=== PATIENT | female | born 1975 | race Caucasian/White ===

== ENCOUNTER 2018-01-01 18:12 | Emergency (ER) | payer OTHER ==
[2018-01-01 18:24] VITALS: BP 159/99; PULSE 101; TEMP 98.2; BMI 26.4
--- NOTE | 2018-01-01 19:05 | PDOC ---
History of Present Illness - History of Present Illness Initial Comments: 01/01/18 20:03 The patient is a 42 year old female, with no significant past medical history, who presents to the emergency department with, right lower extremity calf pain s /p walking down 5 flights of stairs at work this afternoon. The patient reports the right lower extremity calf pain is worse with movement. The patient reports when she was walking for a long period of time in the city 3 weeks ago she experienced the same right lower extremity calf pain that resolved on its own. The patient reports she returned from a recent trip to [facility] ( approx. 3 hour flight) this past Monday. She denies recent fevers, chills, headache or dizziness. She denies recent nausea, vomit, diarrhea or constipation. She denies recent dysuria, frequency, urgency or hematuria. She denies recent chest pain or shortness of breath. PAST MEDICAL HISTORY: no significant history PAST SURGICAL HISTORY: no significant history FAMILY HISTORY: no pertinent history SOCIAL HISTORY: Pt lives with family and is employed. MEDICATIONS: reviewed ALLERGIES: As per nursing notes General: No fevers or chills, no weakness, no weight loss HEENT: No change in vision. No sore throat,. No ear pain CardioVascular: No chest pain or shortness of breath Respiratory:No cough, or wheezing. Gastrointestinal: no nausea, vomiting, diarrhea or constipation, No rectal bleeding Genitourinary: No dysuria, hematuria, or frequency Musculoskeletal: +Right lower extremity calf pain. Neurologic: No headache, vertigo, dizziness or loss of consciousness Psychiatric: nor depression Skin: No rashes or easy bruising Endocrine: no increased thirst or abnormal weight change Allergic: no skin or latex allergy All other systems reviewed and normal General: Well-nourished well-developed individual, no acute distress Cardiac: S1-S2 normal, regular rate and rhythm, no murmurs rubs or gallops Respiratory: Lungs clear to auscultation bilateral Abdomen: Soft, nondistended, normal bowel sounds, nontender to palpation diffusely Extremities: +Tenderness to palpation posterior calf of right lower extremity. 1 + edema. No erythema or increase in warmth. No tender palpable cords in the thigh. Pulses normal. Distal 2+. Skin: No rashes Neuro: Alert and oriented x3, nonfocal exam, grossly intact, normal gait Psych: Normal mood and affect <MccoySin - Last Filed: 01/01/18 20:02> - General History Source: Patient Exam Limitations: No Limitations - History of Present Illness Initial Comments: A portion of this note was documented by scribe services under my direction. I have reviewed the details of the note, within reason, and agree with the documentation. The case summary and management plan written by me. 01/01/18 20:19 Assessment and plan: This is a 42-year-old female comes in complaining of the right calf pain. Patient recently took approximately 3 hour plane trip and the pain began post returning. Patient's concerned about DVT. Patient otherwise denied any associated symptoms of fevers injury or pain other than when walking Ultrasound was obtained which was negative for DVT Patient discharged will follow-up with her doctor. Patient told to take ibuprofen for the pain <Valorie Thomason I - Last Filed: 01/01/18 20:22> - General Chief Complaint: Edema Stated Complaint: RIGHT LOWER LEG SWELLING Time Seen by Provider: 01/01/18 19:04 Past History <Sin Mccoy - Last Filed: 01/01/18 20:02> - Past Medical History COPD: No GI Disorders: Yes (gastritis) HTN: Yes - Suicide/Smoking/Psychosocial Hx Smoking Status: Yes Smoking History: Current every day smoker Have you smoked in the past 12 months: Yes Number of Cigarettes Smoked Daily: 3 Information on smoking cessation initiated: Yes 'Breaking Loose' booklet given: 01/01/18 Hx Alcohol Use: Yes (occasional) Drug/Substance Use Hx: No Substance Use Type: None <Valorie Thomason I - Last Filed: 01/01/18 20:22> - Past Medical History Allergies/Adverse Reactions: Allergies Allergy/AdvReac Type Severity Reaction Status Date / Time banana Allergy Verified 01/01/18 18:14 grape Allergy Verified 01/01/18 18:14 No Known Drug Allergies Allergy Verified 01/01/18 18:14 Home Medications: Ambulatory Orders Azithromycin [Zithromax Z-RACHELL (5 DAYS)] 250 mg PO DAILY #6 tablet 02/11/16 *Physical Exam - Vital Signs Last Vital Signs Temp Pulse Resp BP Pulse Ox 98.2 F 101 H 18 159/99 100 01/01/18 18:13 01/01/18 18:13 01/01/18 18:13 01/01/18 18:13 01/01/18 18:13 <Sin Mccoy - Last Filed: 01/01/18 20:02> - Vital Signs Last Vital Signs Temp Pulse Resp BP Pulse Ox 98.2 F 101 H 18 159/99 100 01/01/18 18:13 01/01/18 18:13 01/01/18 18:13 01/01/18 18:13 01/01/18 18:13 <Valorie Thomason I - Last Filed: 01/01/18 20:22> *DC/Admit/Observation/Transfer - Attestations Scribe Attestion: 01/01/18 20:08 Documentation prepared by Sin Mccoy, acting as medical certification specialist for Valorie Thomason MD. <Sin Mccoy - Last Filed: 01/01/18 20:02> - Discharge Dispostion Admit: No <Valorie Thomason I - Last Filed: 01/01/18 20:22> Diagnosis at time of Disposition: Right calf pain - Discharge Dispostion Disposition: HOME - Referrals - Patient Instructions Printed Discharge Instructions: Smoking Cessation Additional Instructions: For the pain take ibuprofen 3 tablets 3 times a day with food don't take on an empty stomach. Try to rest and elevate the leg as much as possible to help it heal. Return to the emergency department immediately with ANY new, persistent or worsening symptoms. Continue any medications as previously prescribed by your physician. You should follow up with your primary doctor as soon as possible regarding today's emergency department visit. . Please make sure your doctor reviews the results of your emergency evaluation. Thank you for coming to the Emergency Department today for your care. It was a pleasure to see you today. Please note that your evaluation is INCOMPLETE until you follow-up with your doctor. - Post Discharge Activity
[2018-01-01] MEDS ORDERED: IBUPROFEN 600 MG TABLET (FP) PO ONE ×2 (20:21→20:24)
== END 2018-01-01 20:30 | disposition home or self-care (01) ==
LOC: FER 18:12
DX: M79.661 Pain in right lower leg (principal); F17.210 Nicotine dependence, cigarettes, uncomplicated; I10 Essential (primary) hypertension
CPT/HCPCS: 93971-TC; 99281-25

== ENCOUNTER 2018-09-06 14:49 | Emergency (ER) | payer OTHER ==
[2018-09-06 14:54] VITALS: BMI 42.6
[2018-09-06] MEDS ORDERED: ACETAMINOPHEN 650 MG/20.3 ML ORAL SOLUTION (CUPS) ONE (15:35)
[2018-09-06] MEDS ORDERED: ACETAMINOPHEN 500 MG TABLET (FP) ONE (15:40)
[2018-09-06] MEDS ORDERED: ACETAMINOPHEN 500 MG TABLET (FP) PO ONE (15:42)
--- NOTE | 2018-09-06 15:44 | PDOC ---
History of Present Illness - General History Source: Patient <Jesse Deng - Last Filed: 09/06/18 18:02> - General History Source: Patient Exam Limitations: No Limitations - History of Present Illness Initial Comments: 09/06/18 18:10 The patient is a 43 year old female, with a significant past medical history of gastritis and HTN, who presents to the ED complaining of fever an sore throat for 36 hours. She notes that her sore throat is causing her lots of pain. She reports that she has trouble swallowing at the moment due to the pain. The patient denies chest pain, shortness of breath, headache and dizziness. Denies chills, nausea, vomiting, diarrhea or constipation. Denies dysuria, frequency, urgency and hematuria. Allergies: Grapes Past surgical history: None reported Social History: Cigarette use (3 daily). No alcohol or drug use reported <Mikel Garland - Last Filed: 09/06/18 18:38> - General Chief Complaint: Sore Throat Stated Complaint: SORE THROAT, FEVER Time Seen by Provider: 09/06/18 15:20 Past History - Past Medical History COPD: No CHF: No GI Disorders: Yes (gastritis) HTN: Yes - Suicide/Smoking/Psychosocial Hx Smoking Status: Yes Smoking History: Never smoked Have you smoked in the past 12 months: No Number of Cigarettes Smoked Daily: 3 Information on smoking cessation initiated: No 'Breaking Loose' booklet given: 01/01/18 Hx Alcohol Use: No Drug/Substance Use Hx: No Substance Use Type: None <Jesse Deng - Last Filed: 09/06/18 18:02> <Mikel Garland - Last Filed: 09/06/18 18:38> - Past Medical History Allergies/Adverse Reactions: Allergies Allergy/AdvReac Type Severity Reaction Status Date / Time banana Allergy Verified 09/06/18 14:51 grape Allergy Verified 09/06/18 14:51 No Known Drug Allergies Allergy Verified 09/06/18 14:51 Home Medications: Ambulatory Orders NK [No Known Home Medication] 09/06/18 Review of Systems - Review of Systems Able to Perform ROS?: Yes Constitutional: Yes: Fever. No: Chills, Diaphoresis HEENTM: Yes: Throat Pain, Throat Swelling, Difficulty Swallowing Respiratory: No: Cough, Shortness of Breath Cardiac (ROS): No: Chest Pain, Lightheadedness ABD/GI: No: Diarrhea, Nausea, Vomiting : No: Symptoms Reported, See HPI, Burning, Dysuria, Discharge, Frequency, Flank Pain, Hematuria, Incontinence, Pain, Urgency, Testicular Mass, Testicular Swelling, Lesions, Testicular Pain, Other Musculoskeletal: No: Symptoms Reported, See HPI, Back Pain, Gout, Joint Pain, Joint Swelling, Muscle Pain, Muscle Weakness, Neck Pain, Joint Stiffness, Other Integumentary: No: Symptoms Reported, See HPI, Bruising, Change in Color, Change in Hair/Nails, Dryness, Erythema, Flushing, Lesions, Lumps, Pallor, Pruritus, Rash, Sweating, Other Neurological: No: Symptoms reported, See HPI, Headache, Numbness, Paresthesia, Pre-Existing Deficit, Seizure, Tingling, Tremors, Weakness, Unsteady Gait, Ataxia, Dizziness, Other Psychiatric: No: Anxiety, Depression, Frequent Crying, Stressors, Sleep Pattern Change, Emotional Problems, Mood Swings, Change in Appetite, Other Endocrine: No: Symptoms Reported, See HPI, Excessive Sweating, Flushing, Intolerance to Cold, Intolerance to Heat, Increased Hunger, Increased Thirst, Increased Urine, Unexplained Weight Gain, Unexplained Weight Loss, Change in Weight, Other <Mikel Garland - Last Filed: 09/06/18 18:38> *Physical Exam - Vital Signs Last Vital Signs Temp Pulse Resp BP Pulse Ox 103 F H 128 H 18 121/76 98 09/06/18 14:50 09/06/18 14:50 09/06/18 14:50 09/06/18 14:50 09/06/18 14:50 <Jesse Deng S - Last Filed: 09/06/18 18:02> - Vital Signs Last Vital Signs Temp Pulse Resp BP Pulse Ox 99.6 F 112 H 18 121/76 98 09/06/18 17:31 09/06/18 17:31 09/06/18 14:50 09/06/18 14:50 09/06/18 14:50 - Physical Exam Comments: 09/06/18 18:12 Constitutional: Awake, alert, oriented. No acute distress. Head: Normocephalic. Atraumatic Eyes: PERRL. EOMI. Conjunctivae are not pale. ENT: (+) Redness and swollen tonsils, swollen on lateral aspect of the neck Neck: Supple. Full ROM. No lymphadenopathy. Cardiovascular: Regular rate. Regular rhythm. S1, S2 regular. Distal pulses are 2+ and symmetric. Pulmonary/Chest: No evidence of respiratory distress. Clear to auscultation bilaterally No wheezing, rales or rhonchi. Abdominal: Soft and non-distended. There is no tenderness. No rebound, guarding or rigidity. No organomegaly. No palpable masses. Good bowel sounds. Back: No CVA tenderness. Musculoskeletal: No edema. No cyanosis. No clubbing. Full range of motion in all extremities. Nocalf tenderness. Radial/pedal pulses are intact and 2+ bilaterally Skin: Skin is warm and dry. No petechiae. No purpura. Neurological: Alert and oriented to person, place, and time. Cranial nerves II -XII are grossly intact. Normal speech. Strength is grossly symmetric. No sensory deficits. Psychiatric: Good eye contact. Normal interaction, affect and behavior. <Mikel Garland - Last Filed: 09/06/18 18:38> ED Treatment Course - LABORATORY CBC & Chemistry Diagram: 09/06/18 17:10 09/06/18 17:10 <Jesse Deng - Last Filed: 09/06/18 18:02> - LABORATORY CBC & Chemistry Diagram: 09/06/18 17:10 09/06/18 17:10 - ADDITIONAL ORDERS Additional order review: Laboratory Results 09/06/18 09/06/18 17:15 17:10 Sodium 134 L Potassium 3.7 Chloride 103 Carbon Dioxide 24 Anion Gap 7 L BUN 7 Creatinine 0.7 Creat Clearance w eGFR > 60 Random Glucose 110 H Calcium 8.5 Total Bilirubin 1.0 AST 21 D ALT 21 D Alkaline Phosphatase 63 Total Protein 6.8 Albumin 3.6 Urine HCG, Qual Negative 09/06/18 15:45 Group A Strep Rapid Antigen - Final Throat NEGATIVE FOR THE ANTIGEN OF BETA HEMOLYTIC STREP GROUP A 09/06/18 17:10 RBC 4.32 MCV 93.0 MCHC 33.1 RDW 12.1 MPV 10.0 Neutrophils % No Result Required. Lymphocytes % No Result Required. - Medications Given in the ED: ED Medications Discontinued Medications Generic Name Dose Route Start Last Admin Trade Name Milton PRN Reason Stop Dose Admin Acetaminophen 1,000 mg 09/06/18 15:42 09/06/18 15:42 Tylenol - PO 09/06/18 15:43 1,000 mg NOW ONE Administration Methylprednisolone Sodium Succinate 125 mg 09/06/18 17:07 09/06/18 17:22 Solu-Medrol - IVPB 09/06/18 17:08 125 mg ONCE ONE Administration <Mikel Garland - Last Filed: 09/06/18 18:38> Medical Decision Making - Medical Decision Making 09/06/18 18:13 Suspect peritonsillar abscess. Blood work done, cultures and CT scan ordered Patient will do be edores to Dr. Mcgowan in shift change. Peritonsillar abscess is my diagnosis. <Mikel Garland - Last Filed: 09/06/18 18:38> *DC/Admit/Observation/Transfer <Jesse Deng - Last Filed: 09/06/18 18:02> - Attestations Scribe Attestion: 09/06/18 18:13 Documentation prepared by Mikel Garland, acting as center medical and lab director for Jesse Deng MD <Mikel Garland - Last Filed: 09/06/18 18:38> - Discharge Dispostion Condition at time of disposition: Stable
[2018-09-06] MEDS ORDERED: methylPREDNISolone NA SUCC 125 MG/2 ML VIAL IVPB ONE (17:07)
[2018-09-06] MEDS ORDERED: methylPREDNISolone NA SUCC 125 MG/2 ML VIAL ONE (17:19)
[2018-09-06 17:33] LABS: HEMATOCRIT 40.2 % (32.4-45.2); HEMOGLOBIN 13.3 GM/dl (10.7-15.3); MCH 30.8 pg (25.7-33.7); MCHC 33.1 g/dl (32.0-36.0); PLATELET COUNT 223 K/MM3 (134-434); RBC 4.32 M/mm3 (3.60-5.2); RDW 12.1 % (11.6-15.6); WHITE BLOOD COUNT 27.5 K/mm3 (4.0-10.8)
[2018-09-06 17:48] LABS: ALBUMIN 3.6 g/dl (3.5-5.0); ALK PHOS 63 U/L (32-92); ANION GAP 7 MMOL/L (8-16); BLOOD UREA NITROGEN 7 mg/dl (7-18); CALCIUM 8.5 mg/dl (8.4-10.2); CHLORIDE 103 mmol/L (98-107); CO2 24 mmol/L (22-28); CREATININE 0.7 mg/dl (0.6-1.3); GLUCOSE,RANDOM 110 mg/dl (74-106); POTASSIUM 3.7 mmol/L (3.5-5.1); SGOT/AST 21 U/L (10-42); SGPT/ALT 21 U/L (10-40); SODIUM 134 mmol/L (136-145); TOT PROT 6.8 g/dl (6.4-8.3)
[2018-09-06 19:29] LABS: PLATELET ESTIMATE ADEQUATE
[2018-09-06] MEDS ORDERED: SODIUM CHLORIDE 1,000 ML IV STA (20:40)
[2018-09-06] MEDS ORDERED: AMPICILLIN NA/SULBACTAM NA 3 GM in SODIUM CHLORIDE 100 ML IVPB ONE (21:44)
--- NOTE | 2018-09-06 21:44 | PDOC ---
*Physical Exam - Vital Signs Last Vital Signs Temp Pulse Resp BP Pulse Ox 98.5 F 97 H 18 114/74 99 09/06/18 20:39 09/06/18 20:39 09/06/18 20:39 09/06/18 20:39 09/06/18 20:39 ED Treatment Course - LABORATORY CBC & Chemistry Diagram: 09/06/18 17:10 09/06/18 17:10 - ADDITIONAL ORDERS Additional order review: Laboratory Results 09/06/18 09/06/18 09/06/18 18:00 17:15 17:10 Sodium 134 L Potassium 3.7 Chloride 103 Carbon Dioxide 24 Anion Gap 7 L BUN 7 Creatinine 0.7 Creat Clearance w eGFR > 60 Random Glucose 110 H Lactic Acid 1.1 Calcium 8.5 Total Bilirubin 1.0 AST 21 D ALT 21 D Alkaline Phosphatase 63 Total Protein 6.8 Albumin 3.6 Urine HCG, Qual Negative 09/06/18 15:45 Group A Strep Rapid Antigen - Final Throat NEGATIVE FOR THE ANTIGEN OF BETA HEMOLYTIC STREP GROUP A 09/06/18 17:10 RBC 4.32 MCV 93.0 MCHC 33.1 RDW 12.1 MPV 10.0 Neutrophils % No Result Required. Lymphocytes % No Result Required. - Medications Given in the ED: ED Medications Discontinued Medications Generic Name Dose Route Start Last Admin Trade Name Freq PRN Reason Stop Dose Admin Acetaminophen 1,000 mg 09/06/18 15:42 09/06/18 15:42 Tylenol - PO 09/06/18 15:43 1,000 mg NOW ONE Administration Sodium Chloride 1,000 mls @ 1,000 mls/hr 09/06/18 20:40 09/06/18 18:00 Normal Saline - IV 09/06/18 21:39 1,000 mls/hr ASDIR STA Administration Methylprednisolone Sodium Succinate 125 mg 09/06/18 17:07 09/06/18 17:22 Solu-Medrol - IVPB 09/06/18 17:08 125 mg ONCE ONE Administration Progress Note - Progress Note Progress Note: Care of this patient received from Dr. Deng. Patient had soft tissue neck CT with contrast to evaluate for peritonsillar abscess. Study interpreted by Dr. Howell of the radiology staff: Prominent edematous swelling of the left tonsillar region extending inferiorly along the left posterior lateral aspect of the hypopharynx. There was also soft tissue swelling extended superiorly along the left lateral border of the nasopharynx. No discrete fluid collection visualized to indicate abscess formation. Patient received Unasyn 3 g IV Since otolaryngology services not available in this facility, transfer center at [facility] contacted ([facility] was patient's preference for transfer hospital). Case discussed with of the ENT staff. Patient approved for transfer to the ED at [facility] for consult with the otolaryngology staff. Patient transferred by ground transport in stable condition to [facility] ED. *DC/Admit/Observation/Transfer Diagnosis at time of Disposition: Peritonsillar cellulitis - Discharge Dispostion Disposition: TRANSFER ACUTE CARE/OTHER HOSP Condition at time of disposition: Stable - Referrals - Patient Instructions - Post Discharge Activity Forms/Work/School Notes: Back to Work - Transfer to Acute Care Facility Receiving Facility: [facility]. Accepting Physician:: Dr Em
[2018-09-06] MEDS ORDERED: AMPICILLIN NA/SULBACTAM NA 3 GM VIAL ONE (21:47)
[2018-09-06 22:31] VITALS: BP 112/69; PULSE 99; TEMP 98.6
== END 2018-09-06 23:13 | disposition short-term general hospital (02) ==
LOC: FER 14:49
PROC: 3E03329 Introduction of Other Anti-infective into Peripheral Vein, Percutaneous Approach (ICD-10-PCS; principal; 2018-09-06)
PROC: 3E033GC Introduction of Other Therapeutic Substance into Peripheral Vein, Percutaneous Approach (ICD-10-PCS; 2018-09-06)
PROC: 3E0337Z Introduction of Electrolytic and Water Balance Substance into Peripheral Vein, Percutaneous Approach (ICD-10-PCS; 2018-09-06)
DX: J36 Peritonsillar abscess (principal)
CPT/HCPCS: 36415; 70491-TC; 80053; 83605; 84703; 85025; 87040; 87070; 87430; 99283-25; J7030